=== PATIENT | female | born 1955 | race Caucasian/White ===

== ENCOUNTER 2022-06-29 09:48 | Outpatient (CLI) | payer MEDICARE, OTHER | END 2022-06-29 09:49 | disposition home or self-care (01) | LOC: NAV CT 09:48 | PROVIDERS: ATTEND Family Medicine | DX: S72.002D Fracture of unspecified part of neck of left femur, subsequent encounter for closed fracture with routine healing (principal) | CPT/HCPCS: 72192 ==